=== PATIENT | male | born 1965 | race Caucasian/White ===

== ENCOUNTER 2018-08-24 02:46 | Emergency (ER) | payer SELFPAY ==
[~2018-08-24] VITALS: Ht 175.3 cm; Wt 77.1 kg
[2018-08-24] MEDS ORDERED: SODIUM CHLORIDE 0.9% 1000ML 1,000 ML IV ONE (03:15)
[2018-08-24] MEDS ORDERED: KETOROLAC TROMETHAMINE 30 MG/ML VIAL IV STA (03:24)
[2018-08-24] MEDS ORDERED: ONDANSETRON HCL INJ 2MG/ML 2ML 2 MG/ML VIAL IV STA (04:29)
[2018-08-24] MEDS ORDERED: MORPHINE SULFATE 5 MG/ML VIAL IV ONE (04:30)
--- NOTE | 2018-08-24 05:15 | Diagnostic Imaging Report ---
EXAM: CT Abdomen and Pelvis WITHOUT contrast INDICATION: Right-sided abdominal pain radiating to the right testicular region. COMPARISON: None. TECHNIQUE: Abdomen and pelvis were scanned utilizing a multidetector helical scanner from the lung base to the pubic symphysis without administration of IV contrast. Absence of intravenous contrast decreases sensitivity for detection of focal lesions and vascular pathology. Coronal and sagittal reformations were obtained. Renal stone protocol was performed. IV CONTRAST: None. ORAL CONTRAST: Water RADIATION DOSE: Total DLP: 293.32 mGy*cm Estimated effective dose: (DLP x 0.015 x size factor) mSv COMPLICATIONS: None FINDINGS: LINES and TUBES: None. LOWER THORAX: Unremarkable HEPATOBILIARY: No focal hepatic lesions. No biliary ductal dilation. GALLBLADDER: No radio-opaque stones or sludge. No wall thickening. SPLEEN: No splenomegaly. PANCREAS: No focal masses or ductal dilatation. ADRENALS: No adrenal nodules KIDNEYS/URETERS: No hydronephrosis. No cystic or solid mass lesions. No stones. GI TRACT: No abnormal distention, wall thickening, or evidence of bowel obstruction. Appendix is normal. PELVIC ORGANS/BLADDER: Small right sided hydrocele. LYMPH NODES: No lymphadenopathy. VESSELS: Unremarkable. PERITONEUM / RETROPERITONEUM: No free air or fluid. BONES: Degenerative disc disease at L5-S1. SOFT TISSUES: Unremarkable. IMPRESSION: 1. No urolithiasis or obstructive uropathy. No acute abnormality. Signed by: Dr. Trista Colón M.D. on 08/24/2018 5:12 AM
== END 2018-08-24 06:42 | disposition home or self-care (01) ==
LOC: FSED 02:46 → ER 06:42
DX: R10.31 Right lower quadrant pain (principal); M54.5 Low back pain; N50.89 Other specified disorders of the male genital organs; K40.90 Unilateral inguinal hernia, without obstruction or gangrene, not specified as recurrent
CPT/HCPCS: 74176; 80053; 81003; 85025; 99283; J1885; J2270; J2405; J7030